=== PATIENT | male | born 1985 | race African-American/Black ===

== ENCOUNTER 2016-11-28 19:26 | Inpatient (IN) | payer OTHER ==
[~2016-11-28] VITALS: Ht 185.4 cm; Wt 76.9 kg
[~2016-11-28 19:26] MED LIST: FAMO20 PO; HALO100P IM; MEDR4PAK3 PO
[2016-11-28 19:49] VITALS: BP 116/75; PULSE 68; RESP 20; TEMP 98; O2SAT 99
--- NOTE | 2016-11-28 20:07 | PD ---
HPI Chief Complaint: Psychiatric Symptoms Time Seen by Provider: 20:03 Travel History International Travel<30 days: No Contact w/Intl Traveler<30days: No Traveled to known affect area: No History of Present Illness HPI 31 year old male presents to the emergency department under BA by local police. According to the [place] Act, "Roberto is diagnosed bipolar schizophrenic. Roberto has been off of his medication for four months. On todays date Roberto became very aggressive with his mother and barricaded himself within his residence. Roberto is likely to cause harm to himself or others if not treated." When I asked the patient brought him in today, he states "nothing". When asked if he has a history of schizophrenia, he states "no". He also denies being on any medications. The patient is not cooperative and will not answer questions. He does deny any medical complaints today. PFSH Past Medical History Medical History: Denies Significant Hx Asthma: Yes Bipolar Disorder: Yes Anxiety: Yes Depression: Yes Cancer: No Cardiovascular Problems: No Diabetes: No Diminished Hearing: No Endocrine: No Gastrointestinal Disorders: No Genitourinary: No Headaches: No Immune Disorder: No Implanted Vascular Access Dvce: No Musculoskeletal: No Neurologic: Yes (PER PATIENT'S MOTHER) Psychiatric: Yes Reproductive: No Immunizations Current: Yes Schizophrenia: Yes Seizures: No Tetanus Vaccination: < 5 Years Past Surgical History Surgical History: No Previous Surgery Other Surgery: No Social History Alcohol Use: Yes Tobacco Use: Yes (1 ppd) Substance Use: No (DENIES ) Allergies-Medications (Allergen,Severity, Reaction): Coded Allergies: Penicillin (Verified Allergy, Unknown, 11/28/16) Per pt. Reported Meds & Prescriptions Reported Meds & Active Scripts Active No Active Prescriptions or Reported Medications Review of Systems Except as stated in HPI: all other systems reviewed are Neg Physical Exam Narrative GENERAL: Well-developed well-nourished male patient, ambulatory. Afebrile. SKIN: Warm and dry. HEAD: Normocephalic. Atraumatic. EYES: No scleral icterus. No injection or drainage. NECK: Supple, trachea midline. No JVD or lymphadenopathy. CARDIOVASCULAR: Regular rate and rhythm without murmurs, gallops, or rubs. RESPIRATORY: Breath sounds equal bilaterally. No accessory muscle use. Lungs sounds are clear to auscultation. GASTROINTESTINAL: Abdomen soft, non-tender, nondistended. MUSCULOSKELETAL: No cyanosis, or edema. BACK: Nontender without obvious deformity. No CVA tenderness. Data Data Last Documented VS Vital Signs Date Time Temp Pulse Resp B/P Pulse Ox O2 Delivery O2 Flow Rate FiO2 11/29/16 06:07 80 17 115/70 98 Room Air 11/28/16 19:49 98.0 Orders Complete Blood Count With Diff (11/28/16 20:02) Comprehensive Metabolic Panel (11/28/16 20:02) Psych Screen (11/28/16 20:02) Alcohol (Ethanol) (11/28/16 20:02) Diet Regular Basic (11/29/16 Breakfast) Admit Order (Ed Use Only) (11/29/16 06:54) Admit To Inpatient Psych (11/29/16 ) Vital Signs (Adult) YOHAN.Q12H.E (11/29/16 06:54) Activity Oob Ad Lynn (11/29/16 06:54) Level Of Observation (Psych) (11/29/16 06:54) Complete Blood Count With Diff (11/30/16 06:00) Basic Metabolic Panel (Bmp) (11/30/16 06:00) Lipid Profile (11/30/16 06:00) Hemoglobin (Hgb) A1c (11/30/16 06:00) Labs Laboratory Tests Test 11/28/16 20:00 White Blood Count 6.3 TH/MM3 Red Blood Count 4.38 MIL/MM3 Hemoglobin 14.2 GM/DL Hematocrit 42.2 % Mean Corpuscular Volume 96.4 FL Mean Corpuscular Hemoglobin 32.5 PG Mean Corpuscular Hemoglobin 33.7 % Concent Red Cell Distribution Width 13.0 % Platelet Count 322 TH/MM3 Mean Platelet Volume 7.4 FL Neutrophils (%) (Auto) 68.0 % Lymphocytes (%) (Auto) 22.8 % Monocytes (%) (Auto) 6.9 % Eosinophils (%) (Auto) 1.6 % Basophils (%) (Auto) 0.7 % Neutrophils # (Auto) 4.3 TH/MM3 Lymphocytes # (Auto) 1.4 TH/MM3 Monocytes # (Auto) 0.4 TH/MM3 Eosinophils # (Auto) 0.1 TH/MM3 Basophils # (Auto) 0.0 TH/MM3 CBC Comment DIFF FINAL Differential Comment Sodium Level 136 MEQ/L Potassium Level 3.6 MEQ/L Chloride Level 101 MEQ/L Carbon Dioxide Level 26.7 MEQ/L Anion Gap 8 MEQ/L Blood Urea Nitrogen 9 MG/DL Creatinine 1.26 MG/DL Estimat Glomerular Filtration 80 ML/MIN Rate Random Glucose 95 MG/DL Calcium Level 8.8 MG/DL Total Bilirubin 0.4 MG/DL Aspartate Amino Transf 9 U/L (AST/SGOT) Alanine Aminotransferase 17 U/L (ALT/SGPT) Alkaline Phosphatase 69 U/L Total Protein 7.1 GM/DL Albumin 3.9 GM/DL Ethyl Alcohol Level LESS THAN 3 MG/DL MDM Medical Decision Making Medical Screen Exam Complete: Yes Emergency Medical Condition: Yes Medical Record Reviewed: Yes Differential Diagnosis Schizophrenia versus bipolar disorder versus substance abuse versus psychosis versus depression versus anxiety Narrative Course 31-year-old male presents to the emergency Department under Valdez act for psychiatric evaluation. CBC, CMP, alcohol level, urine drug screen are ordered and pending. Upon no acute abnormalities in labs, the patient will be medically cleared for psychiatric screening and disposition. Scripts No Active Prescriptions or Reported Meds Serina Guillory Nov 28, 2016 20:07
[2016-11-28 20:39] LABS: AUTOMATED NEUTROPHIL # 4.3 TH/MM3 (1.8-7.7); BASOPHIL % 0.7 % (0.0-2.0); EOSINOPHIL # 0.1 TH/MM3 (0-0.4); EOSINOPHIL % 1.6 % (0.0-4.0); HEMATOCRIT 42.2 % (39.0-51.0); HEMO FLAGS DIFF FINAL; LYMPH % 22.8 % (9.0-44.0); LYMPHOCYTE # 1.4 TH/MM3 (1.0-4.8); MEAN CELL VOLUME 96.4 FL (80.0-100.0); MEAN CORPUSCULAR HEMOGLOBIN 32.5 PG (27.0-34.0); MEAN CORPUSCULAR HGB CONC 33.7 % (32.0-36.0); MONO % 6.9 % (0.0-8.0); PLATELET COUNT 322 TH/MM3 (150-450); RED BLOOD COUNT 4.38 MIL/MM3 (4.50-5.90); WHITE BLOOD COUNT 6.3 TH/MM3 (4.0-11.0)
[2016-11-28 21:06] LABS: ANION GAP 8 MEQ/L (5-15)
[2016-11-28 21:09] LABS: ALKALINE PHOSPHATASE 69 U/L (45-117); ALT (GPT) 17 U/L (12-78); AST (GOT) 9 U/L (15-37); BICARBONATE 26.7 MEQ/L (21.0-32.0); BLOOD UREA NITROGEN 9 MG/DL (7-18); CHLORIDE 101 MEQ/L (98-107); GLOMERULAR FILTRATION RATE 80 ML/MIN (>89); POTASSIUM 3.6 MEQ/L (3.5-5.1); SODIUM (NA) 136 MEQ/L (136-145); TOTAL BILIRUBIN ADULT 0.4 MG/DL (0.2-1.0)
--- NOTE | 2016-11-28 21:28 | PD ---
Physical Exam Date Seen by Provider: Nov 28, 2016 Narrative For full history and physical examination please see previous provider's note. Data Data Last Documented VS Vital Signs Date Time Temp Pulse Resp B/P Pulse Ox O2 Delivery O2 Flow Rate FiO2 11/28/16 19:49 98.0 68 20 116/75 99 Orders Complete Blood Count With Diff (11/28/16 20:02) Comprehensive Metabolic Panel (11/28/16 20:02) Psych Screen (11/28/16 20:02) Drug Screen, Random Urine (11/28/16 20:02) Alcohol (Ethanol) (11/28/16 20:02) Labs Laboratory Tests Test 11/28/16 20:00 White Blood Count 6.3 TH/MM3 Red Blood Count 4.38 MIL/MM3 Hemoglobin 14.2 GM/DL Hematocrit 42.2 % Mean Corpuscular Volume 96.4 FL Mean Corpuscular Hemoglobin 32.5 PG Mean Corpuscular Hemoglobin 33.7 % Concent Red Cell Distribution Width 13.0 % Platelet Count 322 TH/MM3 Mean Platelet Volume 7.4 FL Neutrophils (%) (Auto) 68.0 % Lymphocytes (%) (Auto) 22.8 % Monocytes (%) (Auto) 6.9 % Eosinophils (%) (Auto) 1.6 % Basophils (%) (Auto) 0.7 % Neutrophils # (Auto) 4.3 TH/MM3 Lymphocytes # (Auto) 1.4 TH/MM3 Monocytes # (Auto) 0.4 TH/MM3 Eosinophils # (Auto) 0.1 TH/MM3 Basophils # (Auto) 0.0 TH/MM3 CBC Comment DIFF FINAL Differential Comment Sodium Level 136 MEQ/L Potassium Level 3.6 MEQ/L Chloride Level 101 MEQ/L Carbon Dioxide Level 26.7 MEQ/L Anion Gap 8 MEQ/L Blood Urea Nitrogen 9 MG/DL Creatinine 1.26 MG/DL Estimat Glomerular Filtration 80 ML/MIN Rate Random Glucose 95 MG/DL Calcium Level 8.8 MG/DL Total Bilirubin 0.4 MG/DL Aspartate Amino Transf 9 U/L (AST/SGOT) Alanine Aminotransferase 17 U/L (ALT/SGPT) Alkaline Phosphatase 69 U/L Total Protein 7.1 GM/DL Albumin 3.9 GM/DL Ethyl Alcohol Level LESS THAN 3 MG/DL [facility] Medical Record Reviewed: Yes Supervised Visit with SHABBIR: No Interpretation(s) Vital Signs Date Time Temp Pulse Resp B/P Pulse Ox O2 Delivery O2 Flow Rate FiO2 11/28/16 19:49 98.0 68 20 116/75 99 Vital Signs Date Time Temp Pulse Resp B/P Pulse Ox O2 Delivery O2 Flow Rate FiO2 11/28/16 19:49 98.0 68 20 116/75 99 Laboratory Tests Test 11/28/16 20:00 White Blood Count 6.3 TH/MM3 Red Blood Count 4.38 MIL/MM3 Hemoglobin 14.2 GM/DL Hematocrit 42.2 % Mean Corpuscular Volume 96.4 FL Mean Corpuscular Hemoglobin 32.5 PG Mean Corpuscular Hemoglobin 33.7 % Concent Red Cell Distribution Width 13.0 % Platelet Count 322 TH/MM3 Mean Platelet Volume 7.4 FL Neutrophils (%) (Auto) 68.0 % Lymphocytes (%) (Auto) 22.8 % Monocytes (%) (Auto) 6.9 % Eosinophils (%) (Auto) 1.6 % Basophils (%) (Auto) 0.7 % Neutrophils # (Auto) 4.3 TH/MM3 Lymphocytes # (Auto) 1.4 TH/MM3 Monocytes # (Auto) 0.4 TH/MM3 Eosinophils # (Auto) 0.1 TH/MM3 Basophils # (Auto) 0.0 TH/MM3 CBC Comment DIFF FINAL Differential Comment Sodium Level 136 MEQ/L Potassium Level 3.6 MEQ/L Chloride Level 101 MEQ/L Carbon Dioxide Level 26.7 MEQ/L Anion Gap 8 MEQ/L Blood Urea Nitrogen 9 MG/DL Creatinine 1.26 MG/DL Estimat Glomerular Filtration 80 ML/MIN Rate Random Glucose 95 MG/DL Calcium Level 8.8 MG/DL Total Bilirubin 0.4 MG/DL Aspartate Amino Transf 9 U/L (AST/SGOT) Alanine Aminotransferase 17 U/L (ALT/SGPT) Alkaline Phosphatase 69 U/L Total Protein 7.1 GM/DL Albumin 3.9 GM/DL Ethyl Alcohol Level LESS THAN 3 MG/DL Differential Diagnosis Mood disorder versus substance abuse versus schizophrenia versus medication noncompliance versus other Narrative Course Patient's 31-year-old male brought into the emergency Department under Valdez act , patient has been noncompliant with medications for schizophrenia. Labs reviewed and are unremarkable. Urine drug screen is pending, I asked patient to provide us with a urine sample he stated that "he cannot go". CBC, chemistry , alcohol level are unremarkable. Patient is medically clear for psychiatric evaluation at this time. Diagnosis Primary Impression: Medical clearance for psychiatric admission Additional Impressions: History of drug use Schizophrenia Qualified Code: F20.9 - Schizophrenia, unspecified type Noncompliance with medication regimen Scripts No Active Prescriptions or Reported Meds Condition: Mireya Wynne Nov 28, 2016 21:28
[2016-11-28 22:03] VITALS: BP 122/68; PULSE 81; RESP 19; O2SAT 98
[2016-11-29 02:00] VITALS: BP 113/72; PULSE 79; RESP 19; O2SAT 100
[2016-11-29 06:07] VITALS: BP 115/70; PULSE 80; RESP 17; O2SAT 98
--- NOTE | 2016-11-29 07:58 | HHI.HP ---
Provisional Diagnosis Admission Date Nov 29, 2016 at 06:57 [place] I. 1. Schizophrenia, paranoid type, acute exacerbation [place] II. Deferred [place] V. GAF is 20 presently Certification of Person's Competence To Provide Express and Informed Consent I have personally examined Saleem Mejia , a person being served at [facility] on, Nov 29, 2016 07:58. Express and informed consent means consent voluntarily given in writing, by a competent person, after sufficient explanation and disclosure of the subject matter involved to enable the person to make a knowing and willful decision without any element of force, fraud, deceit, duress, or other form of constraint or coercion. This person is 18 years of age or older, is not now known to be incompetent to consent to treatment with a guardian advocate, and does not have a health care surrogate or proxy currently making medical treatment decisions. I have found this person to be one of the following: [] Competent to provide express and informed consent, as defined above, for voluntary admission to this facility and is competent to provide express and informed consent for treatment. He/she has the consistent capacity to make well reasoned, willful, and knowing decisions concerning his or her medical or mental health treatment. The person fully and consistently understands the purpose of the admission for examination/placement and is fully capable of personally exercising all rights [place] [x] Incompetent to provide express and informed consent to voluntary admission, and this is incompetent to provide express and informed consent to treatment. The person must be transferred to involuntary status and a petition for a guardian advocate filed with the Circuit Court. [] Refusing to provide express and informed consent to voluntary admission but is competent to provide express and informed consent for treatment. The person must be discharged or transferred to involuntary status. Form shall be completed within 24 hours of a person's arrival at the receiving facility and filed in the clinical record of each person: 1. Admitted on a voluntary basis 2. Permitted to provide express and informed consent to his/her own treatment 3. Allowed to transfer from involuntary to voluntary status 4. Prior to permitting a person to consent to his or her own treatment after having been previously found incompetent to consent to treatment. History of Present Illness Capacity: Lacks Capacity HPI Mr. Mejia is a 31-year-old male with a history of schizophrenia who presents under a Val[place] act from [facility] Department alleging that he has been off of his medications and became aggressive with his mother and barricaded himself in the home. Reviewing the electronic medical record, I note that patient was hospitalized most recently here in January [address] Porter. Patient seen and examined. Chart reviewed. Case discussed with nurse in the J- pod. I find the patient in his room with the covers pulled tightly over his head. He awakens easily to voice and sits up. He has a watch-cap covering his eyes which he pulls up for the interview. He recognizes me from previous admission noting, "yeah, I remember you" after which he falls silent. He is volitionally mute for the remainder of our interaction, although I do try repeatedly to engage with him. He is watchful and internally preoccupied. No posturing or stereotypies or stupor or other evidence of catatonia at this time. Psychiatric interview limited due to lack of cooperation. Given patient's lack of cooperation in the interview, I obtained collateral from his mother over the phone. She notes that he has been off of his psychotropic medications since July of last year. He had previously done well on Haldol Decanoate at a dose of 150 mg IM monthly. She says that he somehow got a bus ticket up to [place] where he has been residing with his aunt. He apparently has been unmedicated up there and has been quite paranoid, believing that people are poisoning his food. He has reportedly lost 30 or 40 pounds since departing from [place] last fall. He was reportedly briefly hospitalized in [place] but discharged, allegedly because of insurance reasons. His family sent him back to [place] to be with his mother. She notes that he was doing okay initially upon arriving about a week ago but wandered off yesterday and when he returned he became fairly explosive. He also has been articulating homicidal ideation towards his mother, allegedly. Mother notes that he has more or less always been on Haldol, although he did try clozapine early in his course but was unable to tolerated due to side effects. He also reportedly has an allergy to Risperdal. Patient's mother requests hospitalization for reinitiation of long-acting injectable. Review of Systems ROS Limitations: Uncooperative, Psychotic, Poor Historian Other Unable to obtain from patient Past Psych History Psychological trauma history Unable to obtain. Patient uncooperative Violence risk - others (6 mos) Indeterminate. Concerned that this is elevated. Violence risk - self (6 mos) Indeterminate Substance Abuse History Drugs/Alcohol past 12 months Unable to obtain. Patient uncooperative. Past Family Social History Coded Allergies: Penicillin (Verified Allergy, Unknown, 11/28/16) Per pt. Past Medical History See EMR No Active Prescriptions or Reported Meds Family History Unable to obtain. Patient uncooperative Social History Unable to obtain. Patient uncooperative Patient's Strengths (min. 2) In a monitored setting. Although volitionally mute he does retain some verbal fluency. Physical Exam Physical examination completed by ED provider. On my examination today, patient is thin but otherwise well developed. He is in no acute physical distress. No abnormal motor movements noted. Labs and vital signs reviewed. Vital Signs Vital Signs Date Time Temp Pulse Resp B/P Pulse Ox O2 Delivery O2 Flow Rate FiO2 11/29/16 06:07 80 17 115/70 98 Room Air 11/28/16 19:49 98.0 Lab Results Item Value Date Time White Blood Count 6.3 TH/MM3 11/28/161999 Hemoglobin 14.2 GM/DL 11/28/161999 Platelet Count 322 TH/MM3 11/28/161999 Sodium Level 136 MEQ/L 11/28/161999 Potassium Level 3.6 MEQ/L 11/28/161999 Chloride Level 101 MEQ/L 11/28/161999 Carbon Dioxide Level 26.7 MEQ/L 11/28/161999 Blood Urea Nitrogen 9 MG/DL 11/28/161999 Creatinine 1.26 MG/DL 11/28/161999 Aspartate Amino Transf (AST/SGOT) 9 U/L L 11/28/161999 Alanine Aminotransferase (ALT/SGPT) 17 U/L 11/28/161999 Alkaline Phosphatase 69 U/L 11/28/161999 Ethyl Alcohol Level LESS THAN 3 MG/DL 11/28/161999 Urine toxicology is not presently available for my review. Mental Status Examination Patient is in hospital gown. He is somewhat disheveled but maintaining basic hygiene. He is awake and alert but uncooperative with mental status testing. No evidence of catatonia. No other motoric abnormalities noted. Volitionally mute for much of the interview. Unable to assess language or fund of knowledge. Unable to assess mood or thought process/content. The patient's affect is flat. He appears watchful and guarded. He does not describe any suicidal or homicidal ideation but is unreliable to contract for safety in his present state. Insight and judgment seem poor presently. Assessment & Plan Problem List: (1) Schizophrenia ICD Code: F20.9 Assessment & Plan This is a 31-year-old male with psychiatric history as detailed above who presents under a Val[place] act. Patient is uncooperative with the interview but collateral from patient's mother indicates that he has been off of his medications for some time and his behavior has been considerably disturbed at home since returning from [place]. I will admit the patient to the inpatient psychiatric unit to resume psychotropic medications as well as for safety, observation and stabilization. Admit inpatient. Involuntary status. I've completed first opinion. Consult for second opinion. Request healthcare surrogate and guardian advocate. Reviewing our electronic medical record, I do see that we have administered Haldol Decanoate in the past and that this was well tolerated. Consequently, I will administer 100 mg of Haldol Decanoate IM now and supplement with oral Haldol with short acting IM Haldol backup should he refuse oral Haldol. Patient will likely require additional Haldol Decanoate but we will need to wait 4-7 days as per software developer manager recommendations before administering the balance of the dose. Ativan as needed for agitation, Cogentin as needed for EPS , Benadryl as needed for sleep. Vitals every shift. Counselor to see. Disposition planning. Estimated length of stay: 10-13 days. Discharge Planning Pending psychiatric stabilization Request HC Surrog/Guard Advoc?: Yes Problem Qualifiers (1) Schizophrenia: Qualified Code: F20.0 - Paranoid schizophrenia Kota Frias MD Nov 29, 2016 07:58
[2016-11-29 10:48] VITALS: BP 100/66; PULSE 84; RESP 18; O2SAT 98
[2016-11-29] MEDS ORDERED: diphenhydrAMINE HCL 50 MG CAP PO PRN (13:30)
[2016-11-29] MEDS ORDERED: HALOPERIDOL LACTATE 5 MG/ML AMP IM PRN (13:30)
[2016-11-29] MEDS ORDERED: MAGNESIUM HYDROXIDE SUSP 30 ML CUP PO PRN (13:30)
[2016-11-29] MEDS ORDERED: ACETAMINOPHEN 325 MG TAB PO PRN (13:30)
[2016-11-29] MEDS ORDERED: HALOPERIDOL DECANOATE 50 MG/ML VIAL IM SCH ×2 (13:30→15:00)
[2016-11-29] MEDS ORDERED: LORazepam 2 MG/ML VIAL IM PRN ×2 (13:30→15:45)
[2016-11-29] MEDS ORDERED: BENZTROPINE MESYLATE 1 MG TAB PO PRN ×2 (13:30→15:45)
[2016-11-29] MEDS ORDERED: LORazepam 1 MG TAB PO PRN ×2 (13:30→15:45)
[2016-11-29] MEDS ORDERED: ALUMINUM/MAGNESIUM/SIMETH 30 ML CUP PO PRN (13:30)
[2016-11-29] MEDS ORDERED: BENZTROPINE MESYLATE 2 MG/2 ML VIAL IM PRN ×2 (13:30→15:45)
[2016-11-29 14:09] VITALS: BP 100/66; PULSE 84; RESP 18; O2SAT 98
[2016-11-29 14:20] VITALS: BP 115/80; PULSE 91; RESP 20; TEMP 98.5; O2SAT 97
[2016-11-29] MEDS ORDERED: hydrOXYzine HCL 50 MG TAB PO PRN (15:45)
[2016-11-29] MEDS ORDERED: diphenhydrAMINE HCL 50 MG/ML VIAL IM PRN (17:30)
[2016-11-29 20:18] VITALS: BP 112/67; PULSE 66; RESP 18; TEMP 98; O2SAT 98
[2016-11-29] MEDS ORDERED: REMOVE OLD NICODERM (NICOTINE) PATCH TD SCH (21:00)
[2016-11-29] MEDS: traZODone HCL 50 MG TAB PO PRN (21:51)
[2016-11-29] MEDS: HALOPERIDOL 5 MG TAB PO SCH (21:51)
[2016-11-30 05:56] VITALS: BP 106/60; PULSE 57; RESP 18; TEMP 98.1; O2SAT 100
[2016-11-30] MEDS: HALOPERIDOL 5 MG TAB PO SCH ×2 (08:06→20:22)
[2016-11-30] MEDS: diphenhydrAMINE HCL 25 MG CAP PO SCH (08:06)
[2016-11-30] MEDS ORDERED: NICOTINE 21 MG/24 HR PATCH TD SCH (09:00)
[2016-11-30] MEDS ORDERED: REMOVE OLD PATCH T-DERMAL SCH (09:00)
[2016-11-30] MEDS ORDERED: NICOTINE 21 MG/24 HR PATCH T-DERMAL SCH (09:00)
--- NOTE | 2016-11-30 17:29 | HHI.PYPN ---
Subjective Remarks Patient seen and examined with counselor. Chart refused. Case discussed with nursing staff. On my examination today, patient is somewhat more interactive. He is fairly disheveled and malodorous. He denies any audiovisual hallucinations. He does appear somewhat internally preoccupied however. He is watchful but not frankly paranoid. He is discharge focused. He reports that he slept well last night. No SI or HI. Denies side effects from psychotropic medications. Review of Systems ROS Limitations: Psychotic, Poor Historian Other No physical complaints today Objective Alert: Yes [place]: Person, Place Mood: Calm Affect: Flat Memory Intact: Comment (seems fair) Hallucinations: Other (internally preoccupied) Delusions: No Delusion Type: Other (watchful but no shimon paranoid ideation) Suicidal: Ideation (no SI) Homicidal: Ideation (no HI) Insight/Judgement Poor Remarks No abnormal motor movements noted. No hand tremor, no dystonia, no dyskinesia. Thought process seems more linear today. Speaking quite a bit more today. Labs Labs reviewed. Vitals/IOs Vital Signs Date Time Temp Pulse Resp B/P Pulse Ox O2 Delivery O2 Flow Rate FiO2 11/30/16 05:56 98.1 57 18 106/60 100 11/29/16 14:09 Room Air Assessment & Plan Problem List: (1) Schizophrenia Assessment & Plan: With severe acute exacerbation ICD Code: F20.9 Assessment & Plan Patient received initial dose of Haldol Decanoate yesterday and we are supplementing this now with oral Haldol. He is tolerating this medication well without any evident side effects. To consider titration of oral Haldol. Plan to administer additional Haldol Decanoate after the weekend. Continue to monitor on the inpatient unit. Continue other medications and care as ordered. Justification for Cont. Inpt. Impairment in reality construction and social function. Medication changes. High risk for decompensation in a lower level of care. Discharge Planning Pending psychiatric stabilization Request HC Surrog/Guard Advoc?: Yes Problem Qualifiers (1) Schizophrenia: Qualified Code: F20.0 - Paranoid schizophrenia Kota Frias MD Nov 30, 2016 17:29
[2016-11-30 19:35] VITALS: BP 106/88; PULSE 93; RESP 18; TEMP 98.7; O2SAT 98
[2016-11-30] MEDS: traZODone HCL 50 MG TAB PO PRN (20:22)
[2016-12-01 06:05] VITALS: BP 103/71; PULSE 89; RESP 18; TEMP 97.9
[2016-12-01] MEDS: HALOPERIDOL 5 MG TAB PO SCH ×3 (08:29→17:58)
[2016-12-01] MEDS: diphenhydrAMINE HCL 25 MG CAP PO SCH (08:29)
--- NOTE | 2016-12-01 10:09 | HHI.PYPN ---
Subjective Remarks Patient seen and examined with counselor and nurse. Chart reviewed. Oral intake inconsistent. Sleep fair. Case discussed with nursing staff who reports that patient is reluctantly medication compliant with oral medications and mouth checks are being performed but the patient was volitionally mute this morning. On my examination, the patient presents as malodorous, hypoverbal and flat. He does engage in brief conversation, but this is largely to deny psychiatric symptomatology. He does appear internally preoccupied. He is discharge focused. He denies side effects from medications. Review of Systems ROS Limitations: Psychotic, Poor Historian Other No physical symptoms. Objective Alert: Yes [place]: Person, Place Mood: Calm Affect: Flat (quite flat) Memory Intact: Comment (seems fair) Hallucinations: Other (remains internally stimulated) Delusions: No Delusion Type: Other (remains watchful and guarded. Suspect underlying paranoia, but the patient is minimizing symptomatology.) Suicidal: Ideation (no SI) Homicidal: Ideation (no HI) Insight/Judgement Poor Remarks No hand tremor, no cogwheeling, no dystonia, no dyskinesia. Thought process slowed, possibly with some thought blocking. Speech generally hypoverbal and monotone. Labs Labs reviewed. No new labs. Vitals/IOs Vital Signs Date Time Temp Pulse Resp B/P Pulse Ox O2 Delivery O2 Flow Rate FiO2 12/01/16 06:05 97.9 89 18 103/71 11/30/16 19:35 98 11/29/16 14:09 Room Air Assessment & Plan Problem List: (1) Schizophrenia ICD Code: F20.9 Assessment & Plan Titrate oral Haldol to target psychosis. Plan for additional Haldol Decanoate beginning of next week. Encourage oral intake. Could consider a dietitian consult if this remains inconsistent. Continue other medications and care as ordered. Justification for Cont. Inpt. Impairment in self-care. Impairment in reality construction. Impairment in social function. Medication changes. High risk for decompensation in a lower level of care. Discharge Planning Pending psychiatric stabilization Request HC Surrog/Guard Advoc?: Yes Problem Qualifiers (1) Schizophrenia: Qualified Code: F20.0 - Paranoid schizophrenia Kota Frias MD Dec 01, 2016 10:09
--- NOTE | 2016-12-01 11:04 | PD.CONS ---
Provisional Diagnosis Admission Date Nov 29, 2016 at 06:57 [place] I. 1. Schizophrenia, paranoid type, acute exacerbation [place] II. Deferred [place] V. GAF is 20 presently History of Present Illness Service Psychiatry Consult Requested By Primary Care Physician No Primary Care Physician HPI Mr. Mejia is a 31-year-old male with a history of schizophrenia who presents under a [place] act from [facility] Department alleging that he has been off of his medications and became aggressive with his mother and barricaded himself in the home. Reviewing the electronic medical record, I note that patient was hospitalized most recently here in January [address] Porter. Patient seen and examined. Chart reviewed. Case discussed with nurse in the J- pod. I find the patient in his room with the covers pulled tightly over his head. He awakens easily to voice and sits up. He has a watch-cap covering his eyes which he pulls up for the interview. He recognizes me from previous admission noting, "yeah, I remember you" after which he falls silent. He is volitionally mute for the remainder of our interaction, although I do try repeatedly to engage with him. He is watchful and internally preoccupied. No posturing or stereotypies or stupor or other evidence of catatonia at this time. Psychiatric interview limited due to lack of cooperation. Given patient's lack of cooperation in the interview, I obtained collateral from his mother over the phone. She notes that he has been off of his psychotropic medications since July of last year. He had previously done well on Haldol Decanoate at a dose of 150 mg IM monthly. She says that he somehow got a bus ticket up to [place] where he has been residing with his aunt. He apparently has been unmedicated up there and has been quite paranoid, believing that people are poisoning his food. He has reportedly lost 30 or 40 pounds since departing from [place] last fall. He was reportedly briefly hospitalized in [place] but discharged, allegedly because of insurance reasons. His family sent him back to [place] to be with his mother. She notes that he was doing okay initially upon arriving about a week ago but wandered off yesterday and when he returned he became fairly explosive. He also has been articulating homicidal ideation towards his mother, allegedly. Mother notes that he has more or less always been on Haldol, although he did try clozapine early in his course but was unable to tolerated due to side effects. He also reportedly has an allergy to Risperdal. Patient's mother requests hospitalization for reinitiation of long-acting injectable. 12/01/16 Above note dictated by Dr. singh reviewed and agreed with. Patient 31-year- old Afro-[place] male admitted to Dr. Padgett service under the [place] act. Patient seen by me with floor staff medical student Tanesha. Patient in bed covers to his chin responses slow brief patient denying having mental illness denying need for medication though it appears his been compliant with it. There is no significant insight noted with him. Dr. Padgett #first opinion petition supporting [employer] act. I agree. Patient meets criteria for involuntary psychiatric hospitalization under the [place] act thus I'll cosign second opinion petition supporting [employer] act Past Family Social History Coded Allergies: Penicillin (Verified Allergy, Unknown, 11/28/16) Per pt. No Active Prescriptions or Reported Meds Current Medications Medications (Trade) Dose Ordered Sig/Leslie Route Start Time Stop Time Status Last Admin (Ativan) 2 mg Q6H PRN PO 11/29/16 13:30 (Benadryl) 50 mg HS PRN PO 11/29/16 13:30 (Tylenol) 650 mg Q4H PRN PO 11/29/16 13:30 (Milk Of Magnesia Liq) 30 ml DAILY PRN PO 11/29/16 13:30 (Mag-Al Plus Susp Liq) 30 ml Q6H PRN PO 11/29/16 13:30 (Cogentin) 1 mg Q12H PRN PO 11/29/16 13:30 (Haldol) 5 mg BID PO 11/29/16 21:00 12/01/16 08:29 (Haldol Inj) 5 mg BID PRN IM 11/29/16 13:30 (Haldol Decanoate Inj) 100 mg Q28D IM 11/29/16 15:00 11/29/16 17:56 (Ativan) 1 mg Q6H PRN PO 11/29/16 15:45 (Atarax) 50 mg Q6H PRN PO 11/29/16 15:45 (Cogentin) 1 mg Q12H PRN PO 11/29/16 15:45 (Desyrel) 50 mg HS PRN PO 11/29/16 21:00 11/30/16 20:22 (Benadryl) 25 mg DAILY PO 11/30/16 09:00 12/01/16 08:29 (Benadryl Inj) 25 mg DAILY PRN IM 11/29/16 17:30 Patient's Strengths (min. 2) In a monitored setting. Although volitionally mute he does retain some verbal fluency. Physical Exam Vital Signs Vital Signs Date Time Temp Pulse Resp B/P Pulse Ox O2 Delivery O2 Flow Rate FiO2 12/01/16 06:05 97.9 89 18 103/71 11/30/16 19:35 98 11/29/16 14:09 Room Air Mental Status Examination Speech: Hesitant, Slow Orientation: Person Memory: Unremarkable Thought Process: Linear Thought Content: Paranoid Hallucination Type: None (denies the times appears to be responding to internal stimuli) Attention and Concentration: Other (poor) Suicidal Ideation: No (denies) Previous Suicide Attempts: No Homicidal Ideation: No (denies) Previous Homicide Attempts: No Insight: Poor Judgement: Poor Affect: Other (slight decrease range increased intensity) Mood: Irritable, Other (somewhat restricted) Motor Activity: Normal gait Assessment & Plan Problem List: (1) Schizophrenia ICD Code: F20.9 Assessment & Plan Estimated LOS: days Request HC Surrog/Guard Advoc?: Yes Problem Qualifiers (1) Schizophrenia: Qualified Code: F20.0 - Paranoid schizophrenia Baudilio Knight MD Dec 01, 2016 11:04
[2016-12-01] MEDS ORDERED: HALOPERIDOL LACTATE 5 MG/ML AMP IM PRN (13:00)
[2016-12-01 14:16] LABS: BASOPHIL % 0.9 % (0.0-2.0); EOSINOPHIL # 0.1 TH/MM3 (0-0.4); HEMATOCRIT 42.6 % (39.0-51.0); HEMO FLAGS DIFF FINAL; LYMPH % 37.6 % (9.0-44.0); LYMPHOCYTE # 1.5 TH/MM3 (1.0-4.8); MEAN CELL VOLUME 96.3 FL (80.0-100.0); MEAN CORPUSCULAR HEMOGLOBIN 32.2 PG (27.0-34.0); MEAN CORPUSCULAR HGB CONC 33.5 % (32.0-36.0); MONO % 8.9 % (0.0-8.0); NEUT % 49.6 % (16.0-70.0); PLATELET COUNT 309 TH/MM3 (150-450); RED BLOOD COUNT 4.42 MIL/MM3 (4.50-5.90); RED CELL DISTRIBUTION WIDTH 12.8 % (11.6-17.2); WHITE BLOOD COUNT 4.1 TH/MM3 (4.0-11.0)
[2016-12-01 14:30] LABS: HEMOGLOBIN A1a 0.6 %; HEMOGLOBIN A1b 0.8 %; HEMOGLOBIN Ao 86.2 %; HEMOGLOBIN F 0.7 %; HEMOGLOBIN LA1C 1.9 %; HEMOGLOBIN P3 3.3 %
[2016-12-01 14:55] LABS: ANION GAP 7 MEQ/L (5-15); BICARBONATE 31.9 MEQ/L (21.0-32.0); BLOOD UREA NITROGEN 9 MG/DL (7-18); CHLORIDE 102 MEQ/L (98-107); GLOMERULAR FILTRATION RATE 79 ML/MIN (>89); HDL CHOLESTEROL 43.7 MG/DL (40.0-60.0); LDL CHOLESTEROL 69 MG/DL (0-99); POTASSIUM 3.9 MEQ/L (3.5-5.1); SODIUM (NA) 141 MEQ/L (136-145)
[2016-12-01 19:27] VITALS: BP 124/77; PULSE 128; RESP 18; TEMP 98.9; O2SAT 97
[2016-12-02 06:22] VITALS: BP 120/71; PULSE 102; RESP 18; TEMP 98.1; O2SAT 95
[2016-12-02] MEDS: diphenhydrAMINE HCL 25 MG CAP PO SCH (09:30)
[2016-12-02] MEDS: HALOPERIDOL 5 MG TAB PO SCH ×3 (09:30→17:43)
--- NOTE | 2016-12-02 13:16 | HHI.PYPN ---
Subjective Remarks Pt seen and discussed with staff. Pt remains quite paranoid with poor insight. He is disheveled and appears to be responding to internal stimuli. When encouraged to go out for fresh air and participate in milieu therapies, pt becomes highly suspicious of MD. He is compliant with medications and denies side effects. No SI/HI. Objective Alert: Yes [place]: Person, Place Mood: Calm Affect: Flat (quite flat) Memory Intact: Comment (seems fair) Hallucinations: Other (remains internally stimulated) Delusions: Yes Delusion Type: Paranoid Suicidal: Ideation (no SI) Homicidal: Ideation (no HI) Insight/Judgement poor Labs Test 12/01/16 14:04 White Blood Count 4.1 TH/MM3 Red Blood Count 4.42 MIL/MM3 Hemoglobin 14.2 GM/DL Hematocrit 42.6 % Mean Corpuscular Volume 96.3 FL Mean Corpuscular Hemoglobin 32.2 PG Mean Corpuscular Hemoglobin 33.5 % Concent Red Cell Distribution Width 12.8 % Platelet Count 309 TH/MM3 Mean Platelet Volume 7.0 FL Neutrophils (%) (Auto) 49.6 % Lymphocytes (%) (Auto) 37.6 % Monocytes (%) (Auto) 8.9 % Eosinophils (%) (Auto) 3.0 % Basophils (%) (Auto) 0.9 % Neutrophils # (Auto) 2.0 TH/MM3 Lymphocytes # (Auto) 1.5 TH/MM3 Monocytes # (Auto) 0.4 TH/MM3 Eosinophils # (Auto) 0.1 TH/MM3 Basophils # (Auto) 0.0 TH/MM3 CBC Comment DIFF FINAL Differential Comment Sodium Level 141 MEQ/L Potassium Level 3.9 MEQ/L Chloride Level 102 MEQ/L Carbon Dioxide Level 31.9 MEQ/L Anion Gap 7 MEQ/L Blood Urea Nitrogen 9 MG/DL Creatinine 1.28 MG/DL Estimat Glomerular Filtration 79 ML/MIN Rate Random Glucose 106 MG/DL Hemoglobin A1c 5.2 % Calcium Level 9.1 MG/DL Triglycerides Level 45 MG/DL Cholesterol Level 122 MG/DL LDL Cholesterol 69 MG/DL HDL Cholesterol 43.7 MG/DL Cholesterol/HDL Ratio 2.79 RATIO Vitals/IOs Vital Signs Date Time Temp Pulse Resp B/P Pulse Ox O2 Delivery O2 Flow Rate FiO2 12/02/16 06:22 98.1 102 18 120/71 95 11/29/16 14:09 Room Air Assessment & Plan Problem List: (1) Schizophrenia ICD Code: F20.9 Assessment & Plan Continue current tx plan. Estimated LOS: days Justification for Cont. Inpt. impairments in reality construction Request HC Surrog/Guard Advoc?: Yes Problem Qualifiers (1) Schizophrenia: Qualified Code: F20.0 - Paranoid schizophrenia Sarah Villegas MD Dec 02, 2016 13:16
[2016-12-02 20:08] VITALS: BP 138/67; PULSE 95; RESP 19; TEMP 98.5; O2SAT 96
[2016-12-03 06:26] VITALS: BP 114/72; PULSE 95; RESP 16; TEMP 98.1; O2SAT 96
[2016-12-03] MEDS: diphenhydrAMINE HCL 25 MG CAP PO SCH (08:46)
[2016-12-03] MEDS: HALOPERIDOL 5 MG TAB PO SCH ×3 (08:46→17:21)
--- NOTE | 2016-12-03 14:26 | HHI.PYPN ---
Subjective Remarks Pt seen and discussed with staff. Pt is compliant with medications and is tolerating without side effects. He remains paranoid and suspicious. He slept poorly last night ad remains internally preoccupied. No SI/HI. Objective Alert: Yes [place]: Person, Place, Date Mood: Calm Affect: Flat (quite flat) Memory Intact: Comment (seems fair) Hallucinations: Auditory, Other (remains internally stimulated) Delusions: Yes Delusion Type: Paranoid Suicidal: Ideation (no SI) Homicidal: Ideation (no HI) Insight/Judgement poor Vitals/IOs Vital Signs Date Time Temp Pulse Resp B/P Pulse Ox O2 Delivery O2 Flow Rate FiO2 12/03/16 06:26 98.1 95 16 114/72 96 11/29/16 14:09 Room Air Assessment & Plan Problem List: (1) Schizophrenia ICD Code: F20.9 Assessment & Plan Continue current tx plan. Estimated LOS: days Justification for Cont. Inpt. impairments in reality construction and self care Request HC Surrog/Guard Advoc?: Yes Problem Qualifiers (1) Schizophrenia: Qualified Code: F20.0 - Paranoid schizophrenia Sarah Villegas MD Dec 03, 2016 14:26
[2016-12-03 18:00] VITALS: BP 114/72; PULSE 77; RESP 16; TEMP 98.7; O2SAT 95
[2016-12-04 06:22] VITALS: BP 130/80; PULSE 92; RESP 18; TEMP 98; O2SAT 98
[2016-12-04] MEDS: diphenhydrAMINE HCL 25 MG CAP PO SCH (08:24)
[2016-12-04] MEDS: HALOPERIDOL 5 MG TAB PO SCH ×3 (08:24→18:00)
--- NOTE | 2016-12-04 11:08 | HHI.PYPN ---
Subjective Remarks Patient seen and examined with counselor. Chart reviewed. Case discussed with nursing staff who reports patient remains watchful and guarded. On my examination today, the patient seems much more interactive and his thought process much more linear than before the weekend. His affect is full and reactive. He denies any SI or HI. He denies any AVH but is still somewhat internally preoccupied. Denies side effects from medications and in particular denies side effects from Haldol decanoate Review of Systems Other No physical complaints today Objective Alert: Yes [place]: Person, Place, Date Mood: Calm Affect: Other (much more full and reactive) Memory Intact: Comment (seems fair) Hallucinations: Other (remains somewhat internally preoccupied) Delusions: No Delusion Type: Other (no shimon delusions) Suicidal: Ideation (denies suicidal ideation) Homicidal: Ideation (denies homicidal ideation) Insight/Judgement Poor Remarks Thought process much more linear. Speech within normal limits for rate, tone and volume. No hand tremor, no dystonia, no dyskinesia, no other motoric abnormalities noted. Labs Labs reviewed. No new labs. Vitals/IOs Vital Signs Date Time Temp Pulse Resp B/P Pulse Ox O2 Delivery O2 Flow Rate FiO2 12/04/16 06:22 98.0 92 18 130/80 98 Assessment & Plan Problem List: (1) Schizophrenia ICD Code: F20.9 Assessment & Plan Patient appears to be responding well to Haldol 5 mg 3 times daily. I will therefore order additional Haldol Decanoate to bring his total dose to 20 times his oral dose, or 300 mg IM. Continue to monitor on the inpatient unit. Counselor to reach out the patient's mother to see what she thinks of his progress. Continue other medications and care as ordered. Justification for Cont. Inpt. Concern for ongoing impairments in safety and reality construction. High risk for decompensation in a lower level of care. Discharge Planning Pending psychiatric stabilization Request HC Surrog/Guard Advoc?: Yes Problem Qualifiers (1) Schizophrenia: Qualified Code: F20.0 - Paranoid schizophrenia Kota Frias MD Dec 04, 2016 11:08
[2016-12-04] MEDS ORDERED: HALOPERIDOL DECANOATE 50 MG/ML VIAL IM SCH (13:00)
[2016-12-04 18:00] VITALS: BP 132/64; PULSE 93; RESP 18; TEMP 98.3; O2SAT 99
[2016-12-05] MEDS: diphenhydrAMINE HCL 25 MG CAP PO SCH (08:41)
[2016-12-05] MEDS: HALOPERIDOL 5 MG TAB PO SCH ×3 (08:41→17:01)
--- NOTE | 2016-12-05 12:34 | HHI.PYPN ---
Subjective Remarks Patient seen and examined with counselor and nursing staff in treatment team. Chart reviewed. Case discussed with nurse, counselor and occupational therapist. On my examination today, the patient remains somewhat discharge focused. He denies any SI, HI or AVH. He remains somewhat watchful and paranoid but his affect is once again more reactive than in previous days. He is calm and pleasant on examination. He denies side effects from medications. Review of Systems ROS Limitations: Poor Historian Other No physical complaints today Objective Alert: Yes [place]: Person, Place (at least) Mood: Calm Affect: Blunted Memory Intact: Comment (seems fair) Hallucinations: Other (again somewhat internally preoccupied) Delusions: No Delusion Type: Other (no shimon delusional material) Suicidal: Ideation (denies SI) Homicidal: Ideation (denies HI) Insight/Judgement Poor Remarks Thought process more linear. Labs Labs reviewed. No new labs. Vitals/IOs Vital Signs Date Time Temp Pulse Resp B/P Pulse Ox O2 Delivery O2 Flow Rate FiO2 12/04/16 18:00 98.3 93 18 132/64 99 Assessment & Plan Problem List: (1) Schizophrenia ICD Code: F20.9 Assessment & Plan Patient received a booster dose of Haldol Decanoate yesterday and is tolerating this medication along with other psychotropics well without side effects. Continue oral Haldol supplementation. Continue other medications and care as ordered. Justification for Cont. Inpt. Impairment in social function. Risk for decompensation pending psychiatric stabilization. Discharge Planning Pending psychiatric stabilization. Counselor to refer patient to the FACT team. We did discuss the possibility of assisted living placement since relationship with mother is apparently somewhat strained at times, and the patient says that he will consider it. Request HC Surrog/Guard Advoc?: Yes Problem Qualifiers (1) Schizophrenia: Qualified Code: F20.0 - Paranoid schizophrenia Kota Frias MD Dec 05, 2016 12:34
[2016-12-05 20:13] VITALS: BP 124/67; PULSE 101; RESP 20; TEMP 98.7; O2SAT 96
[2016-12-06 06:06] VITALS: BP 120/70; PULSE 102; RESP 18; TEMP 97.9; O2SAT 96
[2016-12-06] MEDS: diphenhydrAMINE HCL 25 MG CAP PO SCH (09:38)
[2016-12-06] MEDS: HALOPERIDOL 5 MG TAB PO SCH ×3 (09:38→17:26)
--- NOTE | 2016-12-06 09:52 | HHI.PYPN ---
Subjective Remarks Patient seen and examined with counselor. Chart reviewed. Case discussed with nursing staff. On my examination today, patient appears to be in good spirits; his affect is full and reactive. He remains somewhat focused on discharge but says that he feels like he needs to fix his relationship with his mother first. Despite this. He still wants to go to court to try to force discharge tomorrow. He denies any SI or HI. He denies any audiovisual hallucinations. Nursing staff notes that he is sleeping poorly at night and the patient says this is because he sleeping a lot during the day. I counseled the patient regarding sleep hygiene. Denies side effects from medications. No other issues noted. Review of Systems Other No physical complaints today Objective Alert: Yes [place]: Person, Place Mood: Calm Affect: Euthymic Memory Intact: Comment (seems fair) Hallucinations: Other (denies AVH) Delusions: No Delusion Type: Other (no delusions) Suicidal: Ideation (denies SI) Homicidal: Ideation (denies HI) Insight/Judgement Poor Remarks Thought process seems fairly linear if somewhat discharge focused. No abnormal motor movements noted. Labs Labs reviewed. No new labs. Vitals/IOs Vital Signs Date Time Temp Pulse Resp B/P Pulse Ox O2 Delivery O2 Flow Rate FiO2 12/06/16 06:06 97.9 102 18 120/70 96 Assessment & Plan Problem List: (1) Schizophrenia ICD Code: F20.9 Assessment & Plan Continue oral Haldol supplementing Haldol Decanoate as ordered. Continue other medications and care as ordered. Justification for Cont. Inpt. Monitoring for impairments in safety. Discharge Planning Pending outcome a [place] court tomorrow. Patient is declining [facility] placement. Hopeful to return home with mother. Request HC Surrog/Guard Advoc?: Yes Problem Qualifiers (1) Schizophrenia: Qualified Code: F20.0 - Paranoid schizophrenia Kota Frias MD Dec 06, 2016 09:52
[2016-12-06 18:26] VITALS: BP 108/65; PULSE 93; RESP 16; TEMP 98.2; O2SAT 97
[2016-12-06] MEDS: traZODone HCL 50 MG TAB PO PRN (20:34)
[2016-12-07 05:40] VITALS: BP 128/60; PULSE 78; RESP 17; TEMP 97.6; O2SAT 97
[2016-12-07] MEDS: HALOPERIDOL 5 MG TAB PO SCH ×3 (09:10→18:26)
[2016-12-07] MEDS: diphenhydrAMINE HCL 25 MG CAP PO SCH (09:10)
--- NOTE | 2016-12-07 11:43 | HHI.PYPN ---
Subjective Remarks Patient seen and case discussed with nursing staff. Chart reviewed. On my examination today, patient's affect is fairly full and reactive. No SI or HI voiced. He is able to verbalize some insight into his mental illness. No side effects from medications. Charting indicates the patient is sleeping and eating well. Review of Systems Other no physical complaints today Objective Alert: Yes [place]: Person, Place Mood: Calm Affect: Euthymic Memory Intact: Comment (seems fair) Hallucinations: Other (no AVH reported) Delusions: No Delusion Type: Other (no delusions) Suicidal: Ideation (no SI) Homicidal: Ideation (no HI) Insight/Judgement Perhaps improving somewhat but remains fairly poor overall Remarks Thought process linear Labs Labs reviewed. No new labs. Vitals/IOs Vital Signs Date Time Temp Pulse Resp B/P Pulse Ox O2 Delivery O2 Flow Rate FiO2 12/07/16 05:40 97.6 78 17 128/60 97 Assessment & Plan Problem List: (1) Schizophrenia ICD Code: F20.9 Assessment & Plan Continue oral Haldol supplementing Haldol Decanoate as ordered. Continue other medications and care as ordered. Case was presented to [place] act court and the patient's case was placed in continuance for 1 week[address] Plan discussed in Court would be to initiate a petition for involuntary outpatient psychiatric commitment, which I will do. Justification for Cont. Inpt. Risk for decompensation Discharge Planning Plan to initiate a petition for outpatient commitment, consult for a second opinion and have the patient return to court next to be accepted into the outpatient commitment program. Request HC Surrog/Guard Advoc?: Yes Problem Qualifiers (1) Schizophrenia: Qualified Code: F20.0 - Paranoid schizophrenia Kota Frias MD Dec 07, 2016 11:43
[2016-12-07 19:30] VITALS: BP 118/58; PULSE 108; RESP 16; TEMP 98.3
[2016-12-07] MEDS: traZODone HCL 50 MG TAB PO PRN (20:10)
[2016-12-08 06:05] VITALS: BP 91/63; PULSE 96; RESP 18; TEMP 98.1; O2SAT 98
[2016-12-08] MEDS: HALOPERIDOL 5 MG TAB PO SCH ×3 (08:48→18:47)
[2016-12-08] MEDS: diphenhydrAMINE HCL 25 MG CAP PO SCH (08:48)
--- NOTE | 2016-12-08 10:48 | HHI.PYPN ---
Subjective Remarks Patient seen and examined with counselor. Chart reviewed. Case discussed with nursing staff. Per nursing staff, patient has been pleasant and compliant on the unit. On my examination today, the patient is calm and pleasant. He says "I wish I could've left yesterday, but I guess he will have some work to do." We discussed the plan for involuntary outpatient commitment and he is somewhat reluctant but ultimately agrees that this might be best. He denies any SI, HI or AVH. He denies any side effects from medications and says that the only time that he has had side effects from antipsychotics in the past his when he was smoking cannabis, "but I'm not planning on doing that again." Review of Systems Other No physical complaints today Objective Alert: Yes [place]: Person, Place, Date (approximately) Mood: Calm Affect: Euthymic Memory Intact: Comment (remains fair) Hallucinations: Other (no AVH reported) Delusions: No Delusion Type: Other (no delusional material) Suicidal: Ideation (no SI) Homicidal: Ideation (no HI) Insight/Judgement Poor Remarks Thought process linear. No hand tremor, no dystonia, no dyskinesia noted. Labs Labs reviewed. No new labs. Vitals/IOs Vital Signs Date Time Temp Pulse Resp B/P Pulse Ox O2 Delivery O2 Flow Rate FiO2 12/08/16 06:05 98.1 96 18 91/63 98 Assessment & Plan Problem List: (1) Schizophrenia ICD Code: F20.9 Assessment & Plan Continue oral Haldol supplementing Haldol Decanoate. Continue other medications and care as ordered. Justification for Cont. Inpt. High risk for decompensation until we can get the patient into the involuntary outpatient commitment program. Discharge Planning Plan to initiate petition for involuntary outpatient commitment and consult for second opinion. Say [place] will need to come out for an evaluation for a treatment plan. Anticipate discharge back to mother's care with the additional support of the outpatient treatment program after the next court day. Request HC Surrog/Guard Advoc?: Yes Problem Qualifiers (1) Schizophrenia: Qualified Code: F20.0 - Paranoid schizophrenia Kota Frias MD Dec 08, 2016 10:48
[2016-12-08 22:45] VITALS: BP 118/58; PULSE 108; RESP 16; TEMP 98.3; O2SAT 98
[2016-12-09 06:21] VITALS: BP 133/72; PULSE 91; RESP 18; TEMP 98.3; O2SAT 98
[2016-12-09] MEDS: HALOPERIDOL 5 MG TAB PO SCH ×3 (08:39→18:02)
[2016-12-09] MEDS: diphenhydrAMINE HCL 25 MG CAP PO SCH (08:39)
--- NOTE | 2016-12-09 15:45 | HHI.PYPN ---
Subjective Remarks Patient was seen and case discussed with nursing. Per nursing he has been very cooperative on the unit. Going to all the activities. Patient shows improving insight today. Pleasant with the interview. Denies auditory or visual hallucinations. Compliant with his medications. Mood is "good." Objective Alert: Yes [place]: Person, Place, Date (approximately) Mood: Calm Affect: Euthymic Memory Intact: Comment (remains fair) Hallucinations: Other (no AVH reported) Delusions: No Delusion Type: Other (no delusional material) Suicidal: Ideation (no SI) Homicidal: Ideation (no HI) Insight/Judgement Improving Vitals/IOs Vital Signs Date Time Temp Pulse Resp B/P Pulse Ox O2 Delivery O2 Flow Rate FiO2 12/09/16 06:21 98.3 91 18 133/72 98 Assessment & Plan Problem List: (1) Schizophrenia ICD Code: F20.9 Assessment & Plan Continue current treatment plan Justification for Cont. Inpt. Patient will decompensate in a less restrictive setting Request HC Surrog/Guard Advoc?: Yes Problem Qualifiers (1) Schizophrenia: Qualified Code: F20.0 - Paranoid schizophrenia Kali Zarate DO Dec 09, 2016 15:45
[2016-12-09 19:45] VITALS: BP 152/69; PULSE 82; RESP 18; TEMP 98.1; O2SAT 97
[2016-12-09] MEDS: traZODone HCL 50 MG TAB PO PRN (21:17)
[2016-12-10 05:38] VITALS: BP 125/73; PULSE 62; RESP 19; TEMP 97.8; O2SAT 97
[2016-12-10] MEDS: HALOPERIDOL 5 MG TAB PO SCH ×3 (09:09→18:33)
[2016-12-10] MEDS: diphenhydrAMINE HCL 25 MG CAP PO SCH (09:09)
--- NOTE | 2016-12-10 16:29 | HHI.PYPN ---
Subjective Remarks Patient was seen and case discussed with nursing. Patient remains pleasant and cooperative with exam. Said he had a productive visit with his mother and she is okay with him going home. Describes his mood today is "bored." Nursing believes he may be internally preoccupied. He is withdrawn, blunted and seclusive. Pacing, hesitant with his medications and food Objective Alert: Yes [place]: Person, Place, Date (approximately) Mood: Calm Affect: Euthymic Memory Intact: Comment (remains fair) Hallucinations: Other (no AVH reported) Delusions: No Delusion Type: Other (no delusional material) Suicidal: Ideation (no SI) Homicidal: Ideation (no HI) Insight/Judgement Poor Vitals/IOs Vital Signs Date Time Temp Pulse Resp B/P Pulse Ox O2 Delivery O2 Flow Rate FiO2 12/10/16 05:38 97.8 62 19 125/73 97 Assessment & Plan Problem List: (1) Schizophrenia ICD Code: F20.9 Assessment & Plan Continue current treatment plan Justification for Cont. Inpt. Patient will decompensate in a less restrictive setting Request HC Surrog/Guard Advoc?: Yes Problem Qualifiers (1) Schizophrenia: Qualified Code: F20.0 - Paranoid schizophrenia Kali Zarate DO Dec 10, 2016 16:29
[2016-12-10 17:14] VITALS: BP 114/65; PULSE 87; RESP 18; TEMP 98.7; O2SAT 98
[2016-12-11 05:57] VITALS: BP 114/69; PULSE 80; RESP 18; TEMP 98.2; O2SAT 97
[2016-12-11] MEDS: diphenhydrAMINE HCL 25 MG CAP PO SCH (08:27)
[2016-12-11] MEDS: HALOPERIDOL 5 MG TAB PO SCH ×3 (08:27→17:29)
--- NOTE | 2016-12-11 10:15 | HHI.PYPN ---
Subjective Remarks Patient seen and examined with nurse. Chart reviewed. Case discussed with nursing staff who reports patient has been no behavioral problem. On my examination today, the patient is in good spirits. He denies any SI or AVH. He denies any side effects from psychotropic medications. He is sleeping and eating well per charting. We discuss discharge planning including plan for involuntary outpatient commitment program. Patient would like to be discharged prior to the court hearing for this program on if the necessary paperwork can be completed before then and if it is okay with his mother with whom he lives. Review of Systems Other no physical complaints today Objective Alert: Yes [place]: Person, Place, Date (approximate) Mood: Calm (remains calm and pleasant on exam) Affect: Euthymic Memory Intact: Comment (fair) Hallucinations: Other (none) Delusions: No Delusion Type: Other (no delusions) Suicidal: Ideation (no SI) Homicidal: Ideation (no HI) Insight/Judgement Improving Remarks Thought process linear. Speech is within normal limits for rate, tone and volume. No motoric abnormalities noted. Labs Labs reviewed. No new labs. Vitals/IOs Vital Signs Date Time Temp Pulse Resp B/P Pulse Ox O2 Delivery O2 Flow Rate FiO2 12/11/16 05:57 98.2 80 18 114/69 97 Assessment & Plan Problem List: (1) Schizophrenia ICD Code: F20.9 Assessment & Plan Continue oral supplementation of Haldol Decanoate as ordered. I have completed a first opinion for the involuntary outpatient commitment program and will consult for a second opinion. I have discussed the case with the outpatient case manager liaison from [facility] on the involuntary outpatient commitment team. Continue other medications and care as ordered. Justification for Cont. Inpt. Risk for decompensation pending completion of petition for involuntary outpatient commitment Discharge Planning Possible discharge prior to court date if involuntary outpatient commitment paperwork completed and if okay with mother as the patient is otherwise doing well. Request HC Surrog/Guard Advoc?: Yes Problem Qualifiers (1) Schizophrenia: Qualified Code: F20.0 - Paranoid schizophrenia Kota Frias MD Dec 11, 2016 10:15
[2016-12-11 15:34] VITALS: BP 128/62; PULSE 86; RESP 18; TEMP 98.5; O2SAT 99
[2016-12-12 05:50] VITALS: BP 115/71; PULSE 76; RESP 18; TEMP 97.9; O2SAT 98
--- NOTE | 2016-12-12 07:50 | PD.CONS ---
Provisional Diagnosis Admission Date Nov 29, 2016 at 06:57 [place] I. 1. Schizophrenia, paranoid type, acute exacerbation [place] II. Deferred [place] V. GAF is 20 presently History of Present Illness Service Psychiatry Consult Requested By Primary Care Physician No Primary Care Physician HPI Mr. Mejia is a 31-year-old male with a history of schizophrenia who presents under a [place] act from [facility] Department alleging that he has been off of his medications and became aggressive with his mother and barricaded himself in the home. Reviewing the electronic medical record, I note that patient was hospitalized most recently here in January [address] Porter. Patient seen and examined. Chart reviewed. Case discussed with nurse in the J- pod. I find the patient in his room with the covers pulled tightly over his head. He awakens easily to voice and sits up. He has a watch-cap covering his eyes which he pulls up for the interview. He recognizes me from previous admission noting, "yeah, I remember you" after which he falls silent. He is volitionally mute for the remainder of our interaction, although I do try repeatedly to engage with him. He is watchful and internally preoccupied. No posturing or stereotypies or stupor or other evidence of catatonia at this time. Psychiatric interview limited due to lack of cooperation. Given patient's lack of cooperation in the interview, I obtained collateral from his mother over the phone. She notes that he has been off of his psychotropic medications since July of last year. He had previously done well on Haldol Decanoate at a dose of 150 mg IM monthly. She says that he somehow got a bus ticket up to [place] where he has been residing with his aunt. He apparently has been unmedicated up there and has been quite paranoid, believing that people are poisoning his food. He has reportedly lost 30 or 40 pounds since departing from [place] last fall. He was reportedly briefly hospitalized in [place] but discharged, allegedly because of insurance reasons. His family sent him back to [place] to be with his mother. She notes that he was doing okay initially upon arriving about a week ago but wandered off yesterday and when he returned he became fairly explosive. He also has been articulating homicidal ideation towards his mother, allegedly. Mother notes that he has more or less always been on Haldol, although he did try clozapine early in his course but was unable to tolerated due to side effects. He also reportedly has an allergy to Risperdal. Patient's mother requests hospitalization for reinitiation of long-acting injectable. 12/01/16 Above note dictated by Dr. singh reviewed and agreed with. Patient 31-year- old Afro-[place]ican male admitted to Dr. Padgett service under the [place] act. Patient seen by me with floor staff medical student Tanesha. Patient in bed covers to his chin responses slow brief patient denying having mental illness denying need for medication though it appears his been compliant with it. There is no significant insight noted with him. Dr. Padgett #first opinion petition supporting [place] act. I agree. Patient meets criteria for involuntary psychiatric hospitalization under the [place] act thus I'll cosign second opinion petition supporting [place] act 12/12/16 The above note dictated by Dr padgett and his subsequent progress notes reviewed and agreed with. Patient has been seen and retained through [place] [facility]. Dr. Padgett #first opinion petition for involuntary outpatient placement. Patient has been seen and reviewed by me again for this petition he remains with very little insight into his disease questioning his diagnosis is suffering from mental illness, this need for medication and follow-up. She is a chronic issue with him. Dr. padgett is signed first opinion petition for involuntary outpatient placement. I agree patient meets criteria for involuntary outpatient placement thus I will cosign second opinion petition supporting petition for involuntary outpatient placement Past Family Social History Coded Allergies: Penicillin (Verified Allergy, Unknown, 11/28/16) Per pt. No Active Prescriptions or Reported Meds Current Medications Medications (Trade) Dose Ordered Sig/Leslie Route Start Time Stop Time Status Last Admin (Ativan) 2 mg Q6H PRN PO 11/29/16 13:30 (Benadryl) 50 mg HS PRN PO 11/29/16 13:30 (Tylenol) 650 mg Q4H PRN PO 11/29/16 13:30 (Milk Of Magnesia Liq) 30 ml DAILY PRN PO 11/29/16 13:30 (Mag-Al Plus Susp Liq) 30 ml Q6H PRN PO 11/29/16 13:30 (Cogentin) 1 mg Q12H PRN PO 11/29/16 13:30 (Ativan) 1 mg Q6H PRN PO 11/29/16 15:45 (Atarax) 50 mg Q6H PRN PO 11/29/16 15:45 (Cogentin) 1 mg Q12H PRN PO 11/29/16 15:45 (Desyrel) 50 mg HS PRN PO 11/29/16 21:00 12/09/16 21:17 (Benadryl) 25 mg DAILY PO 11/30/16 09:00 12/11/16 08:27 (Benadryl Inj) 25 mg DAILY PRN IM 11/29/16 17:30 (Haldol) 5 mg TID PO 12/01/16 14:00 12/11/16 17:29 (Haldol Inj) 5 mg TID PRN IM 12/01/16 13:00 Patient's Strengths (min. 2) In a monitored setting. Although volitionally mute he does retain some verbal fluency. Physical Exam Vital Signs Vital Signs Date Time Temp Pulse Resp B/P Pulse Ox O2 Delivery O2 Flow Rate FiO2 12/12/16 05:50 97.9 76 18 115/71 98 Mental Status Examination Speech: Hesitant, Slow Orientation: Person Memory: Unremarkable Thought Process: Linear Thought Content: Paranoid Hallucination Type: None (denies the times appears to be responding to internal stimuli) Attention and Concentration: Other (poor) Suicidal Ideation: No (denies) Previous Suicide Attempts: No Homicidal Ideation: No (denies) Previous Homicide Attempts: No Insight: Poor Judgement: Poor Affect: Other (slight decrease range increased intensity) Mood: Irritable, Other (somewhat restricted) Motor Activity: Normal gait Assessment & Plan Problem List: (1) Schizophrenia ICD Code: F20.9 Assessment & Plan Estimated LOS: days Request HC Surrog/Guard Advoc?: Yes Problem Qualifiers (1) Schizophrenia: Qualified Code: F20.0 - Paranoid schizophrenia Baudilio Knight MD Dec 12, 2016 07:50
[2016-12-12] MEDS: HALOPERIDOL 5 MG TAB PO SCH ×2 (08:42→13:00)
[2016-12-12] MEDS: diphenhydrAMINE HCL 25 MG CAP PO SCH (08:42)
[2016-12-12] MEDS ORDERED: HALO5TAB PO (11:53)
[2016-12-12] MEDS ORDERED: TRAZ50TA12 PO (11:53)
[2016-12-12] MEDS ORDERED: HALO100P IM (11:53)
[2016-12-12] MEDS ORDERED: DIPH25CA PO (11:53)
--- NOTE | 2016-12-12 12:03 | HHI.DS ---
Psychiatry Discharge Summary Inpatient Psychiatric care?: Yes Advance Directive: No Reason Not Provided: DOES NOT HAVE Mental Health AdvanceDirective: No Health Care Proxy: No Admission Admission Date Nov 29, 2016 at 06:57 Admission Diagnosis: (1) Schizophrenia ICD Code: F20.9 Brief History Mr. Mejia is a 31-year-old male with a history of schizophrenia who presents under a [place] act from [facility] Department alleging that he has been off of his medications and became aggressive with his mother and barricaded himself in the home. Reviewing the electronic medical record, I note that patient was hospitalized most recently here in [place] [address] Porter. Patient seen and examined. Chart reviewed. Case discussed with nurse in the J- pod. I find the patient in his room with the covers pulled tightly over his head. He awakens easily to voice and sits up. He has a watch-cap covering his eyes which he pulls up for the interview. He recognizes me from previous admission noting, "yeah, I remember you" after which he falls silent. He is volitionally mute for the remainder of our interaction, although I do try repeatedly to engage with him. He is watchful and internally preoccupied. No posturing or stereotypies or stupor or other evidence of catatonia at this time. Psychiatric interview limited due to lack of cooperation. Given patient's lack of cooperation in the interview, I obtained collateral from his mother over the phone. She notes that he has been off of his psychotropic medications since July of last year. He had previously done well on Haldol Decanoate at a dose of 150 mg IM monthly. She says that he somehow got a bus ticket up to [place] where he has been residing with his aunt. He apparently has been unmedicated up there and has been quite paranoid, believing that people are poisoning his food. He has reportedly lost 30 or 40 pounds since departing from [place] last fall. He was reportedly briefly hospitalized in [place] but discharged, allegedly because of insurance reasons. His family sent him back to [place] to be with his mother. She notes that he was doing okay initially upon arriving about a week ago but wandered off yesterday and when he returned he became fairly explosive. He also has been articulating homicidal ideation towards his mother, allegedly. Mother notes that he has more or less always been on Haldol, although he did try clozapine early in his course but was unable to tolerated due to side effects. He also reportedly has an allergy to Risperdal. Patient's mother requests hospitalization for reinitiation of long-acting injectable. Tobacco Use In Past 30 Days: 5 or More Cigarettes/Day Alcohol Use: 2-4 Times Per Month Hospital Course Patient was admitted to a locked, inpatient psychiatric unit. Appropriate precautions were in place throughout patient's hospital stay. Patient was seen and examined daily on the unit by psychiatry and also visited by counselor. Medications were adjusted. Patient was restarted on Haldol Decanoate which was administered in divided doses for a total monthly dose of 300 mg IM. Patient was restarted on oral Haldol supplementation. Patient tolerated medications well without side effects. Patient had a robust, positive response to Haldol with rapid resolution of his presenting psychotic symptoms. Patient's presenting psychiatric symptomatology improved generally during the course of his hospital stay. There was no evidence of any suicidality or homicidality on the inpatient psychiatric unit. Patient's behavior, although never terribly disorganized or disruptive, improved with the benefit of antipsychotic therapy. His participation in unit activities has been good and he has been sleeping and eating well per notes. I have initiated a petition for involuntary outpatient commitment and this has been filed with the court to appear on the docket this 12/14/2016. On the day of discharge: Patient seen and examined with counselor. Chart reviewed. Case discussed with nurse, counselor and recreation therapist. All are in agreement that the patient has improved from a psychiatric standpoint. Per nursing staff, patient has been no behavioral problem overnight. He is attending to his basic needs. Counselor has been in contact with patient's mother who is agreeable to accepting patient home in advance of the outpatient commitment hearing. On my examination today, the patient is calm and pleasant. He appears to be in good spirits and denies any issues with mood. He denies any suicidal or homicidal ideation on direct questioning. He denies any audiovisual hallucinations, and I can elicit no paranoia, no ideas of reference, no thought insertion or withdrawal or grandiosity or other delusional material. He denies side effects from medications. He has no physical complaints. He is requesting discharge from the inpatient psychiatric unit today. Weighing the acute, chronic, and protective factors and based on the available evidence, I diving judge that the patient no longer meets criteria for involuntary psychiatric hospitalization and is presently at lower imminent risk for harm to self or others from a mental illness. Inasmuch as he is requesting discharge from the inpatient psychiatric unit today therefore, I will arrange for his discharge home today. I have reinforced that he must return on the next court day, 12/14, for his outpatient commitment hearing, and he understands this. I have counseled the patient regarding warning signs for need to return to the psychiatric emergency room as part of a general safety plan. Patient is to follow-up psychiatrically as arranged by counselor and also with primary care. Results Blood Pressure 115 / 71 Vital Signs Date Time Temp Pulse Resp B/P Pulse Ox O2 Delivery O2 Flow Rate FiO2 12/12/16 05:50 97.9 76 18 115/71 98 Item Value Date Time White Blood Count 4.1 TH/MM3 12/01/16 1404 Hemoglobin 14.2 GM/DL 12/01/16 1404 Platelet Count 309 TH/MM3 12/01/16 1404 Sodium Level 141 MEQ/L 12/01/16 1404 Potassium Level 3.9 MEQ/L 12/01/16 1404 Chloride Level 102 MEQ/L 12/01/16 1404 Carbon Dioxide Level 31.9 MEQ/L 12/01/16 1404 Blood Urea Nitrogen 9 MG/DL 12/01/16 1404 Creatinine 1.28 MG/DL 12/01/16 1404 Hemoglobin A1c 5.2 % 12/01/16 1404 Aspartate Amino Transf (AST/SGOT) 9 U/L L 11/28/161999 Alanine Aminotransferase (ALT/SGPT) 17 U/L 11/28/161999 Alkaline Phosphatase 69 U/L 11/28/161999 Ethyl Alcohol Level LESS THAN 3 MG/DL 11/28/161999 Summary of Procedures None done Imaging None done Pending results at discharge: No Medications # of Antipsychotic meds at D/C: 1 Approp Antipsych med options 1 - Minimum of three failed multiple trials of monotherapy. 2 - Documented plan to taper to monotherapy due to previous use of multiple meds OR cross-taper in progress at D/C. 3 - Documentation of augmentation of Clozapine. 4 - Justification other than those listed in allowable values 1-3, document here : Discharge Discharge Date: Dec 12, 2016 Discharge Diagnosis: (1) Schizophrenia Diagnosis: Principal (stabilized and improved) ICD Code: F20.9 GAF on discharge is 55 Mental Status Exam at Disch Patient is casually dressed. He is well groomed. He is awake and alert and oriented 3. No abnormal motor movements noted. No hand tremor, no cogwheeling , no hypomimia, no dystonias, no dyskinesias noted. Speech is within normal limits for rate, tone and volume. Language and fund of knowledge seem average. Mood is good and affect is full and reactive. Thought process linear. No loosening of associations. No evident delusional material. Denies audiovisual hallucinations. Denies suicidal or homicidal ideation. Insight and judgment are [id number]. Pt Condition on Discharge: Stable Discharge Disposition: Discharge Home Discharge Instructions Diet Instructions: As Tolerated, No Restrictions Activities you can perform: Weight Bearing as Swati Scheduled Appointment: [facility] Appointment Date: Dec 14, 2016 Appointment Time: 7:30am New Medications: Haloperidol Decanoate Inj (Haldol Decanoate Inj) 100 Mg/Ml Inj 300 MG IM Q28D Next dose of Haldol Decanoate due on 12/27/2016. Schizophrenia #3 Ref 0 VIAL Diphenhydramine (Diphenhydramine) 25 Mg Cap 25 MG PO DAILY Mental Health Days 15 Ref 1 CAP Haloperidol (Haloperidol) 5 Mg Tab 5 MG PO TID Continue to take oral Haldol at least until your next Haldol Decanoate injection. Please discuss how to proceed with oral Haldol after that with your outpatient psychiatric provider. Mental Health Days 15 Ref 1 TAB Trazodone (Trazodone) 50 Mg Tab 50 MG PO HS PRN INSOMNIA Days 15 Ref 1 TAB Discharge Time > 30 minutes Discharge/Advance Care Plan Health Problems: (1) Schizophrenia Goals to promote your health * To prevent worsening of your condition and complications * To maintain your health at the optimal level Directions to meet your goals Take your medications as prescribed Follow your dietary instruction Follow activity as directed Keep your appointments as scheduled Take your immunizations and boosters as scheduled If your symptoms worsen call your PCP, if no PCP go to Urgent Care Center or Emergency Room For 07/05 questions related to your inpatient stay or results of tests pending at discharge, please contact Dr. Kota Frias at Smoking is Dangerous to Your Health. Avoid second hand smoking Problem Qualifiers (1) Schizophrenia: Qualified Code: F20.0 - Paranoid schizophrenia Kota Frias MD Dec 12, 2016 12:03
== END 2016-12-12 13:25 | disposition home or self-care (01) | DRG 885 ==
LOC: NEPJ 19:26 → NEDA 11-29 06:57 → H270 11-29 14:19
PROVIDERS: ADMIT Psychiatry & Neurology Psychiatry; ATTEND Psychiatry & Neurology Psychiatry
DX: F20.0 Paranoid schizophrenia (principal); R45.850 Homicidal ideations; J45.909 Unspecified asthma, uncomplicated; F12.90 Cannabis use, unspecified, uncomplicated; F17.210 Nicotine dependence, cigarettes, uncomplicated; Z88.0 Allergy status to penicillin; Z91.14 Patient's other noncompliance with medication regimen
CPT/HCPCS: 80048; 80053; 80061; 80320; 83036; 85025; 99284; J1631